=== PATIENT | male | born 1955 | race Caucasian/White ===

== ENCOUNTER 2021-09-05 14:50 | Inpatient (IN) | payer MEDICARE, MEDICAID ==
[~2021-09-05] VITALS: Ht 160 cm; Wt 79.7 kg
[2021-09-05] MEDS ORDERED: LABETALOL 5MG/ML SYR 20 MG/4 ML SYRINGE IV ONE (15:45)
[2021-09-05 15:55] LABS: BASOPHILS % 0.6 % (0.0-2.0); EOSINOPHILS % 1.1 % (0.0-5.0); HEMATOCRIT. 37.7 % (42.0-52.0); HEMOGLOBIN. 12.4 g/dL (14.0-18.0); LYMPHOCYTES % 10.6 % (20.0-50.0); MEAN CORPUSCULAR HEMOGLOBIN 27.1 pg (28.0-32.0); MEAN CORPUSCULAR VOLUME 82.6 fL (80.0-94.0); MEAN PLATELET VOLUME 8.2 fl (7.4-10.4); NEUTROPHILS % 78.7 % (40.0-76.0); PLATELET 201 x1000/uL (130-400); RED BLOOD CELL COUNT 4.56 mill/uL (4.7-6.1); RED CELL DISTRIBUTION WIDTH 13.8 % (11.6-14.6)
[2021-09-05] MEDS ORDERED: IOHEXOL-350 100 ML BOTTLE ONE (16:09)
[2021-09-05 17:26] LABS: CHLORIDE 103 mEq/L (98-107)
[2021-09-05 17:29] LABS: ETHANOL BLOOD < 10 mg/dL
[2021-09-05] MEDS ORDERED: ASPIRIN 300MG SUPP PR ONE (17:30)
[2021-09-05 17:55] LABS: PARTIAL THROMBOPLASTIN TIME 30.8 sec (23.4-31.0); PROTHROMBIN TIME 10.9 sec (9.6-11.0)
[2021-09-05] MEDS ORDERED: FUROSEMIDE 20MG/2ML VIAL IVP ONE (18:15)
[2021-09-05] MEDS ORDERED: IPRATROPIUM/ALBUTEROL 0.5-3(2.5)MG/3ML NEB NEB PRN (19:30)
[2021-09-05] MEDS ORDERED: ZOLPIDEM TARTRATE 5MG TABLET PO PRN ×2 (19:30)
[2021-09-05] MEDS ORDERED: KETOROLAC 15MG/ML VIAL IV PRN (19:30)
[2021-09-05] MEDS ORDERED: CLONIDINE 0.1MG TABLET PO PRN (19:30)
[2021-09-05] MEDS ORDERED: DOCUSATE SODIUM 100MG CAPSULE PO PRN (19:30)
[2021-09-05] MEDS ORDERED: NITROGLYCERIN 0.4MG TABLET SL SL PRN (19:30)
[2021-09-05] MEDS ORDERED: GUAIFENESIN 200MG/10ML SUGAR FREE UDC PO PRN (19:30)
[2021-09-05] MEDS ORDERED: ACETAMINOPHEN 325MG TABLET PO PRN ×2 (19:30)
[2021-09-05] MEDS ORDERED: ONDANSETRON HCL 4MG/2ML INJ IV PRN (19:30)
[2021-09-05] MEDS ORDERED: MAGNESIUM/ALUMINUM HYDROXIDE/SIMETHICONE 30ML UDC PO PRN (19:30)
[2021-09-05 19:41] LABS: FOLIC ACID (FOLATE) SERUM >20 ng/mL ng/mL (>5.38)
[2021-09-05 19:53] LABS: VITAMIN B12 SERUM 948 pg/mL (211-911)
[2021-09-05] MEDS: FAMOTIDINE 20MG TABLET PO SCH (21:13)
[2021-09-05] MEDS: ASCORBIC ACID 500 MG TABLET PO SCH (21:13)
[2021-09-05] MEDS: ENOXAPARIN 40MG/0.4ML SYR SUBCUT SCH (21:21)
[2021-09-05 22:10] LABS: CREATINE KINASE 76 IU/L (39-308)
[2021-09-05 22:11] LABS: CREATINE KINASE MB FRACTION < 1.0 ng/mL (0.5-3.6)
[2021-09-05 23:32] LABS: CLARITY URINE CLEAR (CLEAR); COLOR URINE YELLOW (YELLOW); KETONES URINE NEGATIVE (NEGATIVE); LEUKOCYTE ESTERASE URINE NEGATIVE (NEGATIVE); NITRITE URINE NEGATIVE (NEGATIVE); OCCULT BLOOD URINE NEGATIVE (NEGATIVE); PROTEIN URINE TRACE (NEGATIVE); SPECIFIC GRAVITY URINE 1.059 (1.005-1.030)
[2021-09-06] LABS: *AMPHETAMINES SCREEN URINE NEGATIVE (NEGATIVE); *BARBITURATES SCREEN URINE NEGATIVE (NEGATIVE); *BENZODIAZEPINES SCREEN URINE NEGATIVE (NEGATIVE); *COCAINE SCREEN URINE NEGATIVE (NEGATIVE)
[2021-09-06 00:01] LABS: CANNABINOID URINE SCREEN NEGATIVE (NEGATIVE); METHADONE URINE SCREEN NEGATIVE (NEGATIVE); OPIATES URINE SCREEN NEGATIVE (NEGATIVE); PHENCYCLIDINE URINE SCREEN NEGATIVE (NEGATIVE)
[2021-09-06 06:43] LABS: BASOPHILS % 0.7 % (0.0-2.0); EOSINOPHILS % 1.2 % (0.0-5.0); HEMATOCRIT. 39.6 % (42.0-52.0); HEMOGLOBIN. 13.3 g/dL (14.0-18.0); LYMPHOCYTES % 28.4 % (20.0-50.0); MEAN CORPUSCULAR HEMOGLOBIN 27.8 pg (28.0-32.0); MEAN CORPUSCULAR VOLUME 83.1 fL (80.0-94.0); MEAN PLATELET VOLUME 8.3 fl (7.4-10.4); MONOCYTES % 9.7 % (2.0-8.0); PLATELET 215 x1000/uL (130-400); RED BLOOD CELL COUNT 4.77 mill/uL (4.7-6.1); RED CELL DISTRIBUTION WIDTH 14.1 % (11.6-14.6)
[2021-09-06 06:51] LABS: CHLORIDE 103 mEq/L (98-107)
[2021-09-06 07:00] LABS: PHOSPHORUS 3.7 mg/dL (2.5-4.9)
[2021-09-06 07:01] LABS: LDL CHOLESTEROL 128 mg/dL (5-100)
[2021-09-06 07:03] LABS: CREATINE KINASE 82 IU/L (39-308); HDL CHOLESTEROL 31 mg/dL (40-59)
[2021-09-06] MEDS: ZINC SULFATE 220 MG ( 50 ) CAPSULE PO SCH (08:39)
[2021-09-06] MEDS: CLOPIDOGREL 75MG TABLET PO SCH (08:39)
[2021-09-06] MEDS: ASCORBIC ACID 500 MG TABLET PO SCH ×2 (08:39→21:47)
[2021-09-06] MEDS: FAMOTIDINE 20MG TABLET PO SCH ×2 (08:39→21:47)
[2021-09-06] MEDS: ENOXAPARIN 40MG/0.4ML SYR SUBCUT SCH (21:47)
[2021-09-07 09:00] VITALS: BP 147/65
[2021-09-07 09:30] VITALS: BP 147/65
[2021-09-07] MEDS: ZINC SULFATE 220 MG ( 50 ) CAPSULE PO SCH (11:05)
[2021-09-07] MEDS: FAMOTIDINE 20MG TABLET PO SCH ×2 (11:05→21:40)
[2021-09-07] MEDS: CLOPIDOGREL 75MG TABLET PO SCH (11:05)
[2021-09-07 12:00] VITALS: BP 120/75
[2021-09-07] MEDS: ASCORBIC ACID 500 MG TABLET PO SCH ×2 (12:39→21:41)
[2021-09-07 16:00] VITALS: BP 145/65
[2021-09-07 20:00] VITALS: BP 144/84
[2021-09-07] MEDS: ENOXAPARIN 40MG/0.4ML SYR SUBCUT SCH (21:41)
[2021-09-08] VITALS: BP 136/61
[2021-09-08 04:00] VITALS: BP 118/62
[2021-09-08 08:00] VITALS: BP 140/62
[2021-09-08] MEDS: ASCORBIC ACID 500 MG TABLET PO SCH ×2 (08:23→21:10)
[2021-09-08] MEDS: ZINC SULFATE 220 MG ( 50 ) CAPSULE PO SCH (08:23)
[2021-09-08] MEDS: FAMOTIDINE 20MG TABLET PO SCH ×2 (08:23→21:10)
[2021-09-08] MEDS: CLOPIDOGREL 75MG TABLET PO SCH (08:23)
[2021-09-08 12:00] VITALS: BP 140/74
[2021-09-08 15:57] VITALS: BP 127/73
[2021-09-08 20:00] VITALS: BP_SYST 152; BP_SYST 176; BP_DIAS 68; BP_DIAS 73
[2021-09-08] MEDS: ATORVASTATIN CALCIUM 10MG TABLET PO SCH (21:10)
[2021-09-08] MEDS: ENOXAPARIN 40MG/0.4ML SYR SUBCUT SCH (21:11)
[2021-09-09] VITALS: BP 152/68
[2021-09-09 04:00] VITALS: BP 144/73
[2021-09-09 08:00] VITALS: BP 141/60
[2021-09-09 08:27] LABS: CHLORIDE 111 mEq/L (98-107)
[2021-09-09] MEDS: FAMOTIDINE 20MG TABLET PO SCH ×2 (08:30→21:10)
[2021-09-09] MEDS: CLOPIDOGREL 75MG TABLET PO SCH (08:30)
[2021-09-09] MEDS: ASCORBIC ACID 500 MG TABLET PO SCH ×2 (08:30→21:10)
[2021-09-09] MEDS: ZINC SULFATE 220 MG ( 50 ) CAPSULE PO SCH (08:30)
[2021-09-09] MEDS ORDERED: CLOP-31 MT (10:38)
[2021-09-09] MEDS ORDERED: LOSA50TA41 MT (10:38)
[2021-09-09] MEDS ORDERED: ATOR80TA PO (10:38)
[2021-09-09] MEDS ORDERED: METF-414 PO (10:38)
[2021-09-09] MEDS ORDERED: AMLO10TA4 PO (10:38)
[2021-09-09] MEDS ORDERED: GABA-529 MT (10:38)
[2021-09-09 11:57] VITALS: BP 98/59
[2021-09-09 16:38] VITALS: BP 143/84
[2021-09-09] MEDS ORDERED: POTASSIUM CHLORIDE 20MEQ TABLET SR PO NR (17:15)
[2021-09-09 20:00] VITALS: BP 131/64
[2021-09-09] MEDS: ATORVASTATIN CALCIUM 10MG TABLET PO SCH (21:10)
[2021-09-09] MEDS: ENOXAPARIN 40MG/0.4ML SYR SUBCUT SCH (21:10)
[2021-09-10] VITALS: BP 140/69
[2021-09-10 04:00] VITALS: BP 145/69
[2021-09-10 08:00] VITALS: BP 150/69
[2021-09-10] MEDS: CLOPIDOGREL 75MG TABLET PO SCH (08:03)
[2021-09-10] MEDS: FAMOTIDINE 20MG TABLET PO SCH (08:03)
[2021-09-10] MEDS: ZINC SULFATE 220 MG ( 50 ) CAPSULE PO SCH (08:03)
[2021-09-10] MEDS: ASCORBIC ACID 500 MG TABLET PO SCH (09:33)
[2021-09-10 12:00] VITALS: BP 125/72
[2021-09-10 16:00] VITALS: BP 130/82
[2021-09-10 17:32] VITALS: BP 130/82
[2021-09-10] MEDS ORDERED: ATORVASTATIN CALCIUM 40MG TABLET PO SCH (21:00)
== END 2021-09-10 18:45 | DRG 91 ==
LOC: ER 14:50 → MICUSO 17:28 → SUPCPDRO 17:40 → 7EST 09-07 09:00
PROVIDERS: ADMIT Internal Medicine; ATTEND Internal Medicine
DX: G92.8 Other toxic encephalopathy (principal); U07.1 COVID-19; E44.1 Mild protein-calorie malnutrition; G81.94 Hemiplegia, unspecified affecting left nondominant side; I10 Essential (primary) hypertension; E83.51 Hypocalcemia; R47.81 Slurred speech; Z68.31 Body mass index [BMI] 31.0-31.9, adult; R79.89 Other specified abnormal findings of blood chemistry
CPT/HCPCS: 36415; 70496; 70498; 71045; 80048; 80053; 80061; 80305; 80320; 81003; 82550; 82553; 82607; 82746; 83036; 83540; 83550; 83735; 83880; 84100; 84443; 84484; 85025; 86850; 86900; 87426; 92610; 93005; 93970; 97162; 97166; 99291; J1650; J1940; J3490; Q9967; G0480